=== PATIENT | male | born 1990 | race American Indian/Alaskan Native ===

== ENCOUNTER 2017-01-10 22:25 | Observation (INO) | payer MEDICAID, OTHER ==
--- NOTE | 2017-01-10 22:56 | ED PDOC ---
Arrival/HPI - General Time Seen by Provider: 01/10/17 22:34 Historian: Patient - History of Present Illness Narrative History of Present Illness (Text): 01/10/17 22:56 26 year old male patient presents to the emergency department complaining of chest pain and abdominal pain. Patient was discharged today from [facility] for a psychiatric Evaluation. Patient denies any suicidal ideation, homicidal ideation, fever, chills, shortness of breath, nausea, vomiting, diarrhea, urinary symptoms, back pain, neck pain, headache, dizziness, or any other complaints. PMD: Dr. Jansen Time/Duration: Other Symptom Course: Unchanged Activities at Onset: Light Context: Home Past Medical History - Provider Review Nursing Documentation Reviewed: Yes - Infectious Disease Hx of Infectious Diseases: None - Tetanus Immunization Tetanus Immunization: Unknown - Cardiac Hx Cardiac Disorders: No Hx Hypertension: Yes - Pulmonary Hx Tuberculosis: No - Neurological HX Cerebrovascular Accident: No Hx Seizures: No - HEENT Hx HEENT Disorder: No - Renal Hx Renal Disorder: No - Endocrine/Metabolic Hx Endocrine Disorders: Yes Hx Diabetes Mellitus Type 1: Yes - Hematological/Oncological Hx Cancer: No - Integumentary Hx Dermatological Disorder: No - Musculoskeletal/Rheumatological Hx Fractures: Yes (hx. right wrist) - Gastrointestinal Hx Gastrointestinal Disorders: No - Genitourinary/Gynecological Hx Sexually Transmitted Diseases: No - Psychiatric Hx Anxiety: Yes Hx Bipolar Disorder: Yes Hx Depression: Yes Hx Schizophrenia: Yes Hx Substance Use: Yes (hx of drug overdose) - Anesthesia Hx Anesthesia: No Hx Anesthesia Reactions: No Hx Malignant Hyperthermia: No Family/Social History - Physician Review Nursing Documentation Reviewed: Yes Family/Social History: No Known Family HX Smoking Status: Unknown If Ever Smoked Hx Alcohol Use: No Hx Substance Use: Yes (hx of drug overdose) Substance used: ''Marijuana once a week'' Allergies/Home Meds Allergies/Adverse Reactions: Allergies pollen extracts Allergy (Verified 10/19/16 11:47) REDNESS Review of Systems - Physician Review All systems were reviewed & negative as marked: Yes - Review of Systems Constitutional: absent: Fevers, Other (chills) Respiratory: absent: SOB Cardiovascular: Chest Pain Gastrointestinal: Abdominal Pain. absent: Diarrhea, Nausea, Vomiting Genitourinary Male: Normal. absent: Dysuria, Frequency, Hematuria Musculoskeletal: absent: Back Pain, Neck Pain Neurological: absent: Headache, Dizziness Psychiatric: absent: Suicidal Ideation (/Homicidal Ideation) Physical Exam Vital Signs Reviewed: Yes Vital Signs Temp Pulse Resp BP Pulse Ox 01/11/17 04:00 60 16 127/52 L 99 01/11/17 00:25 86 16 136/78 99 01/10/17 22:25 99.1 F 96 H 16 141/81 99 Temperature: Afebrile Blood Pressure: Normal Pulse: Regular Respiratory Rate: Normal Appearance: Positive for: Well-Appearing, Non-Toxic, Comfortable Pain Distress: None Mental Status: Positive for: Alert and Oriented X 3 - Systems Exam Head: Present: Atraumatic, Normocephalic Pupils: Present: PERRL Extroacular Muscles: Present: EOMI Conjunctiva: Present: Normal Mouth: Present: Moist Mucous Membranes Neck: Present: Normal Range of Motion Respiratory/Chest: Present: Clear to Auscultation, Good Air Exchange. No: Respiratory Distress, Accessory Muscle Use Cardiovascular: Present: Regular Rate and Rhythm, Normal S1, S2. No: Murmurs Abdomen: Present: Normal Bowel Sounds. No: Tenderness, Distention, Peritoneal Signs Back: Present: Normal Inspection Upper Extremity: Present: Normal Inspection. No: Cyanosis, Edema Lower Extremity: Present: Normal Inspection. No: Edema Neurological: Present: GCS=15, CN II-XII Intact, Speech Normal Skin: Present: Warm, Dry, Normal Color. No: Rashes Psychiatric: Present: Alert, Oriented x 3, Normal Insight, Normal Concentration Medical Decision Making ED Course and Treatment: 01/10/17 22:56 Impression: 26 year old male presents for chest pain and abdominal pain. Plan: -- CT abdomen and Pelvis -- EKG -- Labs -- Urinalysis -- Chest Two Views X-ray -- Reassess and disposition Prior Visits: Notes and results from previous visits were reviewed. On 01/10/2017 patient came to [facility] for a psychiatric evaluation. Patient was discharged. Progress Notes: 01/10/17 23:58 EKG shows NSR at [address]/T wave changes with no unchanged results compared to EKG's done today. Interpreted by me. 01/11/17 02:28 CXR Impression: As read by me, no acute processes. EXAM: CT Abdomen and Pelvis Without Intravenous Contrast 01/11/2017 2:51 AM Dictated and Authenticated by: Khanh Page MD IMPRESSION: 1. Mild colitis vs underdistention. Favor underdistention. Clinical correlation is needed. 2. Incidental/non-acute findings are described above. Re-evaluation Time: 06:25 Reassessment Condition: Re-examined, Improved - RAD Interpretation Radiology Orders: 01/10/17 23:06 ABD & PELVIS W/O PO OR IV CONT [CT] Stat 01/10/17 23:07 CHEST TWO VIEWS (PA/LAT) [RAD] Stat - Medication Orders Current Medication Orders: Discontinued Medications Potassium Chloride (K-Dur 20 Meq Er Tab) 20 meq PO ONCE ONE Stop: 01/11/17 06:23 ED OBSERVATION Discharge: Yes Date of observation admission: 01/10/17 Time of observation admission: 23:30 - Observation admission statement Patient is being placed in observation because:: Placed in for abdominal pain. - Goals of Observation Goals of observation are:: Patient goal is improvement in symptoms - Progress Note Progress Note: 01/11/17 03:39 Patient has been examined and will remain under emergency department observation for abdominal pain until ultimate goal of improvement in symptoms. 01/11/17 05:42 Patient resting comfortably, no new complaints. Disposition/Present on Arrival - Present on Arrival Any Indicators Present on Arrival: No History of DVT/PE: No History of Uncontrolled Diabetes: No Urinary Catheter: No History Surgical Site Infection Following: None - Disposition Have Diagnosis and Disposition been Completed?: Yes Diagnosis: Schizoaffective disorder, Abdominal pain Disposition: HOME/ ROUTINE Disposition Time: 06:25 Condition: GOOD
[2017-01-10 23:14] VITALS: RESP 16; O2SAT 99
[2017-01-10 23:58] LABS: BASO # 0.02 K/mm3 (0.0-2.0); BASO % 0.3 % (0.0-3.0); EOS # 0.3 (0.0-0.7); EOS % 3.9 % (1.5-5.0); GRAN # 3.59 (1.4-6.5); GRAN % 53.9 % (50.0-68.0); HEMOGLOBIN 13.8 g/dL (14.0-18.0); LYMPH # 2.4 (1.2-3.4); LYMPH % 35.2 % (22.0-35.0); MEAN CELL VOLUME 79.3 fl (80.0-105.0); MEAN CORPUSCULAR HGB CONC 35.3 g/dl (31.0-37.0); MEAN PLATELET VOLUME 11.2 fl (7.0-11.0); MONO # 0.5 (0.1-0.6); MONO % 6.7 % (1.0-6.0); PLATELET COUNT 193 10^3/uL (120.0-450.0); RBC 4.93 10^6/uL (3.5-6.1); RED CELL DISTRIBUTION WIDTH 13.5 % (11.5-14.5); WHITE BLOOD COUNT 6.7 10^3/ul (4.5-11.0)
[2017-01-11 00:02] LABS: ALB/GLOB RATIO 1.5 (1.1-1.8); ALBUMIN 4.1 g/dL (3.0-4.8); ALT/SGPT 45 U/L (7-56); AMYLASE 41 U/L (35-125); AST/SGOT 46 U/L (15-59); BLOOD UREA NITROGEN 10 mg/dL (7-21); CALCIUM 8.8 mg/dL (8.4-10.5); GFR AFRICAN-AMERICAN > 60; GFR NON-AFRICAN AMERICAN > 60; INR 1.11 (0.93-1.08); LIPASE 92 U/L (23-300); PARTIAL THROMBOPLASTIN TIME 28.9 Seconds (23.7-30.8)
[2017-01-11 00:22] LABS: TROPONIN I < 0.01 ng/mL
[2017-01-11 00:41] LABS: CK MB% 0.4 % (2.5-3.0)
--- NOTE | 2017-01-11 02:51 | CT ---
EXAM: CT Abdomen and Pelvis Without Intravenous Contrast CLINICAL HISTORY: 26 years old, male; Pain; Abdominal pain; Generalized; Additional info: Abd pain TECHNIQUE: Axial computed tomography images of the abdomen and pelvis without intravenous contrast. All CT scans at this facility use one or more dose reduction techniques, viz.: automated exposure control; ma/kV adjustment per patient size (including targeted exams where dose is matched to indication; i.e. head); or iterative reconstruction technique. Coronal and sagittal reformatted images were created and reviewed. COMPARISON: No relevant prior studies available. FINDINGS: Limitations: Lack of intravenous contrast. Lower thorax: Mild atelectasis. ABDOMEN: Liver: Unremarkable. Gallbladder and bile ducts: No calcified stones. No ductal dilation. Pancreas: Unremarkable. No ductal dilation. Spleen: No splenomegaly. Adrenals: No mass. Kidneys and ureters: No renal calculi. No hydronephrosis. Stomach and bowel: Mild mural thickening vs underdistention of ascending colon. No associated inflammatory stranding. No obstruction. Appendix: Normal caliber. No inflammation. PELVIS: Bladder: Unremarkable. No stones. Reproductive: Unremarkable as visualized. ABDOMEN and PELVIS: Intraperitoneal space: No significant fluid collection. No free air. Bones/joints: No acute fracture. Soft tissues: Tiny umbilical hernia containing fat. Small paraumbilical hernia containing fat. Vasculature: Unremarkable. No aneurysm. Lymph nodes: No pathologically enlarged lymph nodes. IMPRESSION: 1. Mild colitis vs underdistention. Favor underdistention. Clinical correlation is needed. 2. Incidental/non-acute findings are described above.
[2017-01-11] MEDS ORDERED: Potassium Chloride 20 mEq ER Tab PO ONE (06:22)
[2017-01-11 06:48] VITALS: BP 118/64; PULSE 69; TEMP 97.6
--- NOTE | 2017-01-11 07:04 | RAD ---
HISTORY: fall COMPARISON: 05/15/2016 TECHNIQUE: Chest PA and lateral FINDINGS: LUNGS: No active pulmonary disease. PLEURA: No significant pleural effusion identified. No pneumothorax apparent. CARDIOVASCULAR: Normal. OSSEOUS STRUCTURES: No significant abnormalities. VISUALIZED UPPER ABDOMEN: Normal. OTHER FINDINGS: None. IMPRESSION: No active disease. No interval pathology noted
--- NOTE | 2017-01-11 09:52 | CARD ---
APPROVED REPORT EKG Measurement Heart [id number] <Conclusion> Normal sinus rhythm Non Specific ST_T Changes. High Voltage can be normal for Young Age.
== END 2017-01-11 06:30 | disposition home or self-care (01) ==
LOC: ED 22:25 → EROBSV 23:30
PROVIDERS: ADMIT Emergency Medicine; ATTEND Emergency Medicine
DX: F25.9 Schizoaffective disorder, unspecified (principal); R10.9 Unspecified abdominal pain; I10 Essential (primary) hypertension; E11.9 Type 2 diabetes mellitus without complications; F31.9 Bipolar disorder, unspecified
CPT/HCPCS: 71020; 74176; 80053; 82150; 82550; 82553; 83615; 83690; 84484; 85025; 85610; 85730; 93005; 99285; G0378

== ENCOUNTER 2017-04-06 21:49 | Inpatient (IN) | payer SELFPAY ==
[2017-04-06 21:49] VITALS: BMI 34.8
--- NOTE | 2017-04-06 22:25 | ED PDOC ---
Arrival/HPI - General Historian: Patient - History of Present Illness Time/Duration: Other (see hpi) Context: Home <Laura Dunlap - Last Filed: 04/07/17 02:06> <Joana Davis - Last Filed: 04/07/17 06:21> - General Chief Complaint: Syncope Time Seen by Provider: 04/06/17 22:15 - History of Present Illness Narrative History of Present Illness (Text): 04/06/17 22:25 This 27 yo male with pmh Anxiety, Asthma, Bipolar Disorder, Depression, HTN, Hypercholesterolemia, Migraine, Schizophrenia, Sleep Apnea, presents to this ED c/o feeling generalized weakness x 2 days. Patient noted feeling dizzy and fainted twice today. Patient stated he always has a constant auditory and visual hallucination. Patient stated he is complaint to his medication. During medical interview, patient appeared irritable, not wanted to answer some of my questions, getting angry when I asked question regarding his psych history. Patient has been eating [facility] meal during medical interview. (Laura Dunlap) Past Medical History - Provider Review Nursing Documentation Reviewed: Yes - Infectious Disease Hx of Infectious Diseases: None - Tetanus Immunization Tetanus Immunization: Unknown - Cardiac Hx Cardiac Disorders: No (Pt reported but not offical diagnosis or treatment for illness) Hx Hypertension: Yes (denies medication) - Pulmonary Hx Asthma: Yes Hx Sleep Apnea: Yes - Neurological Hx Migraine: Yes - HEENT Hx HEENT Disorder: No - Renal Hx Renal Disorder: No - Endocrine/Metabolic Hx Endocrine Disorders: Yes - Hematological/Oncological Hx Cancer: No (Patient denied) - Integumentary Hx Dermatological Disorder: No - Musculoskeletal/Rheumatological Hx Fractures: Yes (hx. right wrist) - Gastrointestinal Hx Gastrointestinal Disorders: No - Genitourinary/Gynecological Hx Sexually Transmitted Diseases: No (Patient denied) - Psychiatric Hx Anxiety: Yes Hx Bipolar Disorder: Yes Hx Depression: Yes Hx Schizophrenia: Yes Hx Substance Use: Yes - Anesthesia Hx Anesthesia: No Hx Anesthesia Reactions: No Hx Malignant Hyperthermia: No <Laura Dunlap - Last Filed: 04/07/17 02:06> Family/Social History - Physician Review Nursing Documentation Reviewed: Yes Family/Social History: Other (noncontributory) Smoking Status: Light Smoker < 10 Cigarettes Daily Hx Alcohol Use: No Hx Substance Use: Yes Substance used: ''Marijuana once a week'' <Laura Dunlap P - Last Filed: 04/07/17 02:06> Allergies/Home Meds <Laura Dunlap - Last Filed: 04/07/17 02:06> <Joana Davis - Last Filed: 04/07/17 06:21> Allergies/Adverse Reactions: Allergies pollen extracts Allergy (Verified 04/06/17 22:52) REDNESS Home Medications: Home Meds Medication Instructions Recorded Confirmed No Known Home Med 04/06/17 04/06/17 Review of Systems - Review of Systems Constitutional: Fatigue. absent: Weight Change, Fevers, Night Sweats Eyes: Normal ENT: Normal Respiratory: Normal. absent: SOB, Cough Cardiovascular: Syncope. absent: Chest Pain, Palpitations Gastrointestinal: Normal. absent: Abdominal Pain, Nausea, Vomiting Genitourinary Male: Normal. absent: Dysuria, Frequency, Hematuria Musculoskeletal: Normal Skin: Normal. absent: Rash, Pruritis, Skin Lesions, Laceration Neurological: Normal. absent: Headache, Dizziness, Focal Weakness, Gait Changes , Speech Changes, Facial Droop, Disequilibrium, Seizure Endocrine: Normal Hemo/Lymphatic: Normal Psychiatric: Other (see hpi) <Laura Dunlap P - Last Filed: 04/07/17 02:06> Physical Exam Temperature: Afebrile Blood Pressure: Normal Pulse: Regular Respiratory Rate: Normal Appearance: Positive for: Well-Appearing, Non-Toxic, Comfortable Pain Distress: None Mental Status: Positive for: Alert and Oriented X 3 - Systems Exam Head: Present: Atraumatic, Normocephalic Pupils: Present: PERRL Extroacular Muscles: Present: EOMI Conjunctiva: Present: Normal Mouth: Present: Moist Mucous Membranes Pharnyx: Present: Normal. No: ERYTHEMA, EXUDATE, TONSILS ENLARGED Neck: Present: Normal Range of Motion. No: Meningeal Signs Respiratory/Chest: Present: Clear to Auscultation, Good Air Exchange. No: Respiratory Distress, Accessory Muscle Use, Wheezes, Retracting, Rhonchi Cardiovascular: Present: Regular Rate and Rhythm, Normal S1, S2. No: Murmurs Abdomen: Present: Normal Bowel Sounds. No: Tenderness, Distention, Peritoneal Signs Back: Present: Normal Inspection. No: CVA Tenderness Upper Extremity: Present: Normal Inspection, Normal ROM, NORMAL PULSES, Neurovascularly Intact, Capillary Refill < 2s. No: Cyanosis, Edema Lower Extremity: Present: Normal Inspection, NORMAL PULSES, Normal ROM, Neurovascularly Intact, Capillary Refill < 2 s. No: Edema, CALF TENDERNESS Neurological: Present: GCS=15, CN II-XII Intact, Speech Normal, Motor Func Grossly Intact, Normal Sensory Function, Normal Cerebellar Funct, Gait Normal, Memory Normal Skin: Present: Warm, Dry, Normal Color. No: Rashes Psychiatric: Present: Alert, Oriented x 3, Anxious, Hallucinations, Other (+ irritable). No: Suicidal Ideation, Homicidal Ideation <Laura Dunlap P - Last Filed: 04/07/17 02:06> Vital Signs Temp Pulse Resp BP Pulse Ox 04/07/17 03:15 68 17 100/60 100 04/06/17 21:59 98.5 F 78 19 135/65 99 Medical Decision Making <Laura Dunlap - Last Filed: 04/07/17 02:06> <Joana Davis - Last Filed: 04/07/17 06:21> ED Course and Treatment: 04/07/17 01:56 Patient came to this ED c/o feeling dizzy, and he stated he fainted twice today. Patient admits visual and auditory hallucination. Patient told me he is complaint to medication, although he told triage nurse he is not taking his psych meds. Patient appears irritable, and refusing to give all psych information. Patient remained stable during the course of ED visit. no syncope, dizziness during the course of ED visit. 04/07/17 02:09 I sign out this case to Dr. Davis. Pending UA, UDS, CXR. Pending PES evaluation since he presents with psychotic behavior. (Laura Dunlap) 04/07/17 06:15 CXR already done on 03/27 was unremarkable. No indication to repeat. The patient's urine is pending but was otherwise medically cleared for PES evaluation and admission. Patient seen by PES - will be admitted to psych for schizoaffective/bipolar. (Joana Davis) - Lab Interpretations Lab Results: 04/06/17 23:20 04/06/17 23:20 Lab Results 04/06/17 23:20: Alcohol, Quantitative < 10 04/06/17 23:20: Salicylates < 1 L, Acetaminophen < 10.0 L 04/06/17 23:20: Sodium 140, Potassium 4.3, Chloride 108, Carbon Dioxide 24, Anion Gap 12, BUN 14, Creatinine 0.8, Est GFR ( Amer) > 60, Est GFR (Non- Af Amer) > 60, Random Glucose 100, Calcium 8.8, Total Bilirubin 0.7, AST 53, ALT 55, Alkaline Phosphatase 50, Total Protein 6.8, Albumin 4.0, Globulin 2.8, Albumin/Globulin Ratio 1.4 04/06/17 23:20: WBC 6.7, RBC 4.56, Hgb 12.6 L, Hct 37.0 L, MCV 81.1, MCH 27.6, MCHC 34.1, RDW 14.4, Plt Count 177, MPV 12.3 H, Gran % 44.1 L, Lymph % (Auto) 46.6 H, Robertson % (Auto) 6.7 H, Eos % (Auto) 2.2, Baso % (Auto) 0.4, Gran # 2.94, Lymph # 3.1, Robertson # 0.5, Eos # 0.2, Baso # 0.03 - RAD Interpretation Radiology Orders: 04/06/17 22:38 CHEST PORTABLE [RAD] Stat Disposition/Present on Arrival - Present on Arrival History of DVT/PE: No History of Uncontrolled Diabetes: No Urinary Catheter: No History of Decub. Ulcer: No History Surgical Site Infection Following: None <Laura Dunlap - Last Filed: 04/07/17 02:06> - Present on Arrival Any Indicators Present on Arrival: No - Disposition Have Diagnosis and Disposition been Completed?: Yes Disposition Time: 06:00 Patient Plan: Admission <Joana Davis - Last Filed: 04/07/17 06:21> - Disposition Diagnosis: Schizoaffective disorder, Paranoid delusion Disposition: HOSPITALIZED Condition: FAIR Referrals: PCP,NO [Primary Care Provider] - Follow up with primary Forms: [employer] (Portuguese)
[2017-04-06 23:48] LABS: BASO # 0.03 K/mm3 (0.0-2.0); BASO % 0.4 % (0.0-3.0); EOS # 0.2 (0.0-0.7); EOS % 2.2 % (1.5-5.0); GRAN # 2.94 (1.4-6.5); GRAN % 44.1 % (50.0-68.0); LYMPH # 3.1 (1.2-3.4); LYMPH % 46.6 % (22.0-35.0); MEAN CELL VOLUME 81.1 fl (80.0-105.0); MEAN CORPUSCULAR HEMOGLOBIN 27.6 pg (25.0-35.0); MEAN CORPUSCULAR HGB CONC 34.1 g/dl (31.0-37.0); MEAN PLATELET VOLUME 12.3 fl (7.0-11.0); MONO # 0.5 (0.1-0.6); MONO % 6.7 % (1.0-6.0); RED CELL DISTRIBUTION WIDTH 14.4 % (11.5-14.5); WHITE BLOOD COUNT 6.7 10^3/ul (4.5-11.0)
[2017-04-06 23:58] LABS: ALB/GLOB RATIO 1.4 (1.1-1.8); ALKALINE PHOSPHATASE 50 U/L (38-126); ALT/SGPT 55 U/L (7-56); AST/SGOT 53 U/L (17-59); BILIRUBIN,TOTAL 0.7 mg/dL (0.2-1.3); BLOOD UREA NITROGEN 14 mg/dL (7-21); CALCIUM 8.8 mg/dL (8.4-10.5); CARBON DIOXIDE 24 mmol/L (21-33); CHLORIDE 108 mmol/L (95-110); GFR AFRICAN-AMERICAN > 60; GLUCOSE,RANDOM 100 mg/dL (70-110); POTASSIUM 4.3 mmol/L (3.6-5.0); SODIUM 140 mmol/L (132-148); TOTAL PROTEIN 6.8 g/dL (5.8-8.3)
[2017-04-07 07:24] LABS: URINE BILIRUBIN SMALL (NEGATIVE); URINE BLOOD NEGATIVE (NEGATIVE); URINE GLUCOSE (UA) NEGATIVE (NEGATIVE); URINE KETONE NEGATIVE (NEGATIVE); URINE LEUKOCYTE ESTERASE NEGATIVE Leu/uL (NEGATIVE); URINE PROTEIN TRACE mg/dL (<30 mg/dL)
[2017-04-07 07:32] LABS: URINE COLOR YELLOW (YELLOW)
[2017-04-07 07:33] LABS: URINE APPEARANCE CLEAR (CLEAR)
[2017-04-07 07:50] LABS: URINE BACTERIA MOD (NEG); URINE RBC NEGATIVE /hpf (0-2); URINE WBC NEGATIVE /hpf (0-6)
--- NOTE | 2017-04-07 12:39 | PCM.BM ---
<AbramAneesh - Last Filed: 04/07/17 12:40> Treatment Plan Problems - Problems identified on initial assessmt agitated/aggressive behavior Date Initiated: 04/07/17 Time Initiated: 12:37 Assessment reference: HP, NA high risk for violence Date Initiated: 04/07/17 Time Initiated: 12:37 Assessment reference: HP, NA medication nonadherence Date Initiated: 04/07/17 Time Initiated: 12:38 Assessment reference: HP, NA ineffective impulse control Date Initiated: 04/07/17 Time Initiated: 12:38 Assessment reference: HP, NA Treatment assets and liabiliti Patient Assests: cooperative, ADL independent, physically healthy, negotiates basic needs, cognitively intact Patient Liabilities: live alone, financial problems, poor support system, relationship conflicts, substance abuse, other (psychotic symptoms) - Milieu Protocol Maintain good personal hygiene: daily Encourage regular showers, daily Remind patient to perform daily oral care, daily Assist patient to perform ADL's Maintain personal safety: daily Educate patient to report safety concerns to staff, daily Monitor environment for contraband/sharps Medication safety: Monitor for expected outcome, potential side effects: daily, Assess barriers to learning: daily, Assess readiness for medication education: daily Discharge/Continuing Care - Education Needs Education Needs: Patient Medication, Patient Diagnosis/Disease Process, Patient Coping Skills, Patient Anger Management skills, Patient Placement options, Patient Community resources, Patient Activities of Daily Living, Patient Health Practices/Safety, Patient Personal Hygiene/Grooming, Patient Aftercare Safety Plan, Patient Other - Discharge Discharge Criteria: Free of Suicidal thoughts, Free of Homicidal thoughts, Free of paranoid thoughts, Free of agitation, Normal sleep pattern, Ability to care for self <Marisel Contreras - Last Filed: 04/07/17 16:35> Family Contact Family involvement: Famliy/SO not involved <Marge Tinajero - Last Filed: 04/07/17 16:49> Treatment Plan Problems - Problems identified on initial assessmt agitated/aggressive behavior Date Initiated: 04/07/17 Time Initiated: 12:37 Assessment reference: HP, NA high risk for violence Date Initiated: 04/07/17 Time Initiated: 12:37 Assessment reference: HP, NA medication nonadherence Date Initiated: 04/07/17 Time Initiated: 12:38 Assessment reference: HP, NA ineffective impulse control Date Initiated: 04/07/17 Time Initiated: 12:38 Assessment reference: HP, NA ineffective imulse control Date Initiated: 04/07/17 Time Initiated: 12:38 Assessment reference: JURGEN NA
--- NOTE | 2017-04-07 13:01 | CARD ---
APPROVED REPORT EKG Measurement Heart [id number] NM [id number] [id number] <Conclusion> Normal sinus rhythm Normal ECG
[2017-04-07] MEDS: Divalproex 500 mg DR(BID formulation) PO SCH ×2 (17:27→18:27)
[2017-04-07 18:51] LABS: URINE BILIRUBIN SMALL (NEGATIVE); URINE BLOOD NEGATIVE (NEGATIVE); URINE GLUCOSE (UA) NEGATIVE (NEGATIVE); URINE KETONE NEGATIVE (NEGATIVE); URINE LEUKOCYTE ESTERASE NEGATIVE Leu/uL (NEGATIVE); URINE PROTEIN NEGATIVE mg/dL (<30 mg/dL)
[2017-04-07 18:53] LABS: URINE APPEARANCE CLEAR (CLEAR); URINE COLOR DARK YELLOW (YELLOW)
[2017-04-08 07:01] VITALS: O2SAT 100
[2017-04-08 08:20] LABS: CHOLESTEROL 155 mg/dL (130-200); GLUCOSE,FASTING 84 mg/dL (65-110)
[2017-04-08 08:39] LABS: FREE T4 1.01 ng/dL (0.78-2.19)
[2017-04-08] MEDS: Divalproex 500 mg DR(BID formulation) PO SCH ×3 (08:41→17:38)
[2017-04-08] MEDS ORDERED: Albuterol HFA 90 mcg/actuation (8 g) IH PRN (08:47)
[2017-04-08 08:53] LABS: THYROID STIMULATING HORMONE 2.64 mIU/mL (0.46-4.68)
[2017-04-08] MEDS ORDERED: Albuterol 0.083% Inhal Sol (2.5 mg/3 mL) UD IH PRN (08:54)
[2017-04-08 09:39] LABS: TROPONIN I < 0.01 ng/mL
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
--- NOTE | 2017-04-08 15:14 | CT ---
PROCEDURE: CT HEAD WITHOUT CONTRAST. HISTORY: near-syncope COMPARISON: None available. TECHNIQUE: Axial computed tomography images were obtained through the head/brain without intravenous contrast. Radiation dose: Total exam DLP = 825.58 mGy-cm. This CT exam was performed using one or more of the following dose reduction techniques: Automated exposure control, adjustment of the mA and/or kV according to patient size, and/or use of iterative reconstruction technique. FINDINGS: HEMORRHAGE: No intracranial hemorrhage. BRAIN: No mass effect or edema. No atrophy or chronic microvascular ischemic changes. VENTRICLES: Unremarkable. No hydrocephalus. CALVARIUM: Unremarkable. PARANASAL SINUSES: Unremarkable as visualized. No significant inflammatory changes. MASTOID AIR CELLS: Unremarkable as visualized. No inflammatory changes. OTHER FINDINGS: None. IMPRESSION: No evidence of acute intracranial pathology.
[2017-04-08 16:04] LABS: TROPONIN I < 0.01 ng/mL
--- NOTE | 2017-04-08 16:55 | PCM.PYCHPN ---
Psychiatric Progress Note - Psychiatric Progress Note Patient seen today, length of contact: 25 min Patient Chief Complaint: irritable Problems Identified/Issues Discussed: I recent notes and met with patient at bedside. Patient has been difficult on the unit. Noted to be paranoid and hostile towards staff. Patient spit up his medications yesterday. Security needed to be called to give him IM haldol and Ativan after he refused to take it PO. Patient is brittle but cooperative with my questioning this morning at bedside. Patient is fairly groomed and oriented to month year and location. He reports that he isn't sleeping and has been irritable about the noise on the unit. Regarding hallucinations he is a little bit vague indicate that he "sees blurs" . He denies any auditory hallucinations and he doesn't appear to be responding to internal stimuli. He denies any new discomfort or pain however does report tingling in his extremities which he attributes to his medications. There are no behavioral issues overnight however patient insight and judgment are poor and he remains unpredictable Diagnostic Results: Schizoaffective Disorder Medication Change: No Medical Record Reviewed: Yes Mental Status Examination - Cognitive Function Orientation: Person, Place Attention: WNL - Mood Mood: Other (irritable) - Affect Affect: Other (labile) - Speech Speech: Appropriate - Formal Thought Process Formal Thought Process: Hallucinations (blurs), Paranoia - Suicidal Ideation Suicidal Ideation: No - Homicidal Ideation Homicidal Ideation: No Goal/Treatment Plan - Goal/Treatment Plan Progress Toward Problem(s) and Goals/Treatment Plan: * c/w current tx and plan * Vitals reviewed and noted below: Selected Entries 04/06/17 04/07/17 04/07/17 21:59 03:15 06:52 Temperature 98.5 F Pulse Rate 78 68 63 Respiratory 19 17 Rate Blood Pressure 135/65 100/60 130/76 * Weekend labs noted below: 04/08/17 04/08/17 04/08/17 06:50 06:50 06:50 Fasting Glucose 84 Lactate Dehydrogenase Total Creatine Kinase CK-MB (CK-2) Troponin I Triglycerides 88 Cholesterol 155 LDL Cholesterol Direct 85 HDL Cholesterol 47 Free T4 1.01 TSH 3rd Generation 2.64 Valproic Acid RPR Nonreactive 04/08/17 04/08/17 04/08/17 06:50 08:50 15:15 Fasting Glucose Lactate Dehydrogenase 484 454 Total Creatine Kinase 785 H 691 H CK-MB (CK-2) 3.0 3.2 Troponin I < 0.01 < 0.01 Triglycerides Cholesterol LDL Cholesterol Direct HDL Cholesterol Free T4 TSH 3rd Generation Valproic Acid < 10 L RPR
[2017-04-08] MEDS: Albuterol HFA 90 mcg/actuation (8 g) IH PRN ×2 (17:01→21:36)
[2017-04-08 21:18] LABS: TROPONIN I < 0.01 ng/mL
[2017-04-09] MEDS: Albuterol HFA 90 mcg/actuation (8 g) IH PRN (08:45)
[2017-04-09] MEDS: Divalproex 500 mg DR(BID formulation) PO SCH ×2 (08:46→12:34)
--- NOTE | 2017-04-09 09:58 | PCM.PYCHPN ---
Psychiatric Progress Note - Psychiatric Progress Note Patient seen today, length of contact: 25 min Patient Chief Complaint: "the same" Problems Identified/Issues Discussed: I reviewed recent notes and met with patient in the [facility]. He is groomed, alert , oriented x3. Notes indicate that he was in better control on Monday ( yesterday). On Monday patient was paranoid and hostile towards staff. He spit up his medications. Security needed to be called to give him IM haldol and Ativan after he refused to take it PO. Patient is calm and cooperative with my questioning this morning. He reports that he feels the same. Regarding hallucinations he is still a little bit vague indicate that he "sees blurs". He denies any auditory hallucinations and he doesn't appear to be responding to internal stimuli. He denies any new discomfort or pain however does still report numbness and tingling in his extremities which he attributes to his medications. There were no behavioral issues overnight. Diagnostic Results: Schizoaffective Disorder Medication Change: No Medical Record Reviewed: Yes Mental Status Examination - Cognitive Function Orientation: Person, Place Attention: WNL - Mood Mood: Other (irritable, "the same") - Affect Affect: Other (labile) - Speech Speech: Appropriate - Formal Thought Process Formal Thought Process: Hallucinations (blurs), Paranoia - Suicidal Ideation Suicidal Ideation: No - Homicidal Ideation Homicidal Ideation: No Goal/Treatment Plan - Goal/Treatment Plan Progress Toward Problem(s) and Goals/Treatment Plan: * c/w current tx and plan * Appreciate f/u by Dr. Coto on 04/08/17~CT head was ordered as well as serial cardiac enzymes. To check orthostatics and monitor fingersticks as he reported history of hypoglycemic episodes. * Vitals reviewed and noted below: Selected Entries 04/08/17 04/08/17 07:00 16:00 Temperature 98.5 F Pulse Rate 62 56 L Respiratory 16 Rate Blood Pressure 99/63 L 120/71 O2 Sat by Pulse 100 Oximetry * Weekend labs noted below: Laboratory Results - last 72 hr 04/06/17 04/06/17 04/06/17 23:20 23:20 23:20 WBC 6.7 RBC 4.56 Hgb 12.6 L Hct 37.0 L MCV 81.1 MCH 27.6 MCHC 34.1 RDW 14.4 Plt Count 177 MPV 12.3 H Gran % 44.1 L Lymph % (Auto) 46.6 H [place] % (Auto) 6.7 H Eos % (Auto) 2.2 Baso % (Auto) 0.4 Gran # 2.94 Lymph # 3.1 [place] # 0.5 Eos # 0.2 Baso # 0.03 Sodium 140 Potassium 4.3 Chloride 108 Carbon Dioxide 24 Anion Gap 12 BUN 14 Creatinine 0.8 Est GFR ( Amer) > 60 Est GFR (Non-Af Amer) > 60 POC Glucose (mg/dL) Random Glucose 100 Fasting Glucose Calcium 8.8 Total Bilirubin 0.7 AST 53 ALT 55 Alkaline Phosphatase 50 Lactate Dehydrogenase Total Creatine Kinase CK-MB (CK-2) CK-MB (CK-2) % Troponin I Total Protein 6.8 Albumin 4.0 Globulin 2.8 Albumin/Globulin Ratio 1.4 Triglycerides Cholesterol LDL Cholesterol Direct HDL Cholesterol Free T4 TSH 3rd Generation Urine Color Urine Appearance Urine pH Ur Specific [place] Urine Protein Urine Glucose (UA) Urine Ketones Urine Blood Urine Nitrate Urine Bilirubin Urine Urobilinogen Ur Leukocyte Esterase Urine RBC Urine WBC Ur Epithelial Cells Urine Bacteria Salicylates < 1 L Urine Opiates Screen Urine Methadone Screen Acetaminophen < 10.0 L Ur Barbiturates Screen Valproic Acid Ur Phencyclidine Scrn Ur Amphetamines Screen U Benzodiazepines Scrn U Oth Cocaine Metabols U Cannabinoids Screen Alcohol, Quantitative RPR 04/06/17 04/07/17 04/07/17 23:20 06:40 06:40 WBC RBC Hgb Hct MCV MCH MCHC RDW Plt Count MPV Gran % Lymph % (Auto) [place] % (Auto) Eos % (Auto) Baso % (Auto) Gran # Lymph # [place] # Eos # Baso # Sodium Potassium Chloride Carbon Dioxide Anion Gap BUN Creatinine Est GFR ( Amer) Est GFR (Non-Af Amer) POC Glucose (mg/dL) Random Glucose Fasting Glucose Calcium Total Bilirubin AST ALT Alkaline Phosphatase Lactate Dehydrogenase Total Creatine Kinase CK-MB (CK-2) CK-MB (CK-2) % Troponin I Total Protein Albumin Globulin Albumin/Globulin Ratio Triglycerides Cholesterol LDL Cholesterol Direct HDL Cholesterol Free T4 TSH 3rd Generation Urine Color Yellow Urine Appearance Clear Urine pH 6.0 Ur Specific [place] >= 1.030 Urine Protein Trace H Urine Glucose (UA) Negative Urine Ketones Negative Urine Blood Negative Urine Nitrate Negative Urine Bilirubin Small H Urine Urobilinogen 2.0 H Ur Leukocyte Esterase Negative Urine RBC Negative Urine WBC Negative Ur Epithelial Cells None Urine Bacteria Mod Salicylates Urine Opiates Screen Negative Urine Methadone Screen Negative Acetaminophen Ur Barbiturates Screen Negative Valproic Acid Ur Phencyclidine Scrn Negative Ur Amphetamines Screen Negative U Benzodiazepines Scrn Negative U Oth Cocaine Metabols Negative U Cannabinoids Screen Positive H Alcohol, Quantitative < 10 RPR 04/07/17 04/07/17 04/08/17 18:40 18:40 06:50 WBC RBC Hgb Hct MCV MCH MCHC RDW Plt Count MPV Gran % Lymph % (Auto) [place] % (Auto) Eos % (Auto) Baso % (Auto) Gran # Lymph # [place] # Eos # Baso # Sodium Potassium Chloride Carbon Dioxide Anion Gap BUN Creatinine Est GFR ( Amer) Est GFR (Non-Af Amer) POC Glucose (mg/dL) Random Glucose Fasting Glucose 84 Calcium Total Bilirubin AST ALT Alkaline Phosphatase Lactate Dehydrogenase Total Creatine Kinase CK-MB (CK-2) CK-MB (CK-2) % Troponin I Total Protein Albumin Globulin Albumin/Globulin Ratio Triglycerides 88 Cholesterol 155 LDL Cholesterol Direct 85 HDL Cholesterol 47 Free T4 TSH 3rd Generation Urine Color Dark yellow Urine Appearance Clear Urine pH 7.0 Ur Specific [place] 1.020 Urine Protein Negative Urine Glucose (UA) Negative Urine Ketones Negative Urine Blood Negative Urine Nitrate Negative Urine Bilirubin Small H Urine Urobilinogen 4.0 H Ur Leukocyte Esterase Negative Urine RBC Urine WBC Ur Epithelial Cells Urine Bacteria Salicylates Urine Opiates Screen Negative Urine Methadone Screen Negative Acetaminophen Ur Barbiturates Screen Negative Valproic Acid Ur Phencyclidine Scrn Negative Ur Amphetamines Screen Negative U Benzodiazepines Scrn Negative U Oth Cocaine Metabols Negative U Cannabinoids Screen Positive H Alcohol, Quantitative RPR 04/08/17 04/08/17 04/08/17 06:50 06:50 06:50 WBC RBC Hgb Hct MCV MCH MCHC RDW Plt Count MPV Gran % Lymph % (Auto) [place] % (Auto) Eos % (Auto) Baso % (Auto) Gran # Lymph # [place] # Eos # Baso # Sodium Potassium Chloride Carbon Dioxide Anion Gap BUN Creatinine Est GFR ( Amer) Est GFR (Non-Af Amer) POC Glucose (mg/dL) Random Glucose Fasting Glucose Calcium Total Bilirubin AST ALT Alkaline Phosphatase Lactate Dehydrogenase Total Creatine Kinase CK-MB (CK-2) CK-MB (CK-2) % Troponin I Total Protein Albumin Globulin Albumin/Globulin Ratio Triglycerides Cholesterol LDL Cholesterol Direct HDL Cholesterol Free T4 1.01 TSH 3rd Generation 2.64 Urine Color Urine Appearance Urine pH Ur Specific [place] Urine Protein Urine Glucose (UA) Urine Ketones Urine Blood Urine Nitrate Urine Bilirubin Urine Urobilinogen Ur Leukocyte Esterase Urine RBC Urine WBC Ur Epithelial Cells Urine Bacteria Salicylates Urine Opiates Screen Urine Methadone Screen Acetaminophen Ur Barbiturates Screen Valproic Acid < 10 L Ur Phencyclidine Scrn Ur Amphetamines Screen U Benzodiazepines Scrn U Oth Cocaine Metabols U Cannabinoids Screen Alcohol, Quantitative RPR Nonreactive 04/08/17 04/08/17 04/08/17 08:50 15:15 17:07 WBC RBC Hgb Hct MCV MCH MCHC RDW Plt Count MPV Gran % Lymph % (Auto) [place] % (Auto) Eos % (Auto) Baso % (Auto) Gran # Lymph # [place] # Eos # Baso # Sodium Potassium Chloride Carbon Dioxide Anion Gap BUN Creatinine Est GFR ( Amer) Est GFR (Non-Af Amer) POC Glucose (mg/dL) 76 Random Glucose Fasting Glucose Calcium Total Bilirubin AST ALT Alkaline Phosphatase Lactate Dehydrogenase 484 454 Total Creatine Kinase 785 H 691 H CK-MB (CK-2) 3.0 3.2 CK-MB (CK-2) % Cancelled Cancelled Troponin I < 0.01 < 0.01 Total Protein Albumin Globulin Albumin/Globulin Ratio Triglycerides Cholesterol LDL Cholesterol Direct HDL Cholesterol Free T4 TSH 3rd Generation Urine Color Urine Appearance Urine pH Ur Specific [place] Urine Protein Urine Glucose (UA) Urine Ketones Urine Blood Urine Nitrate Urine Bilirubin Urine Urobilinogen Ur Leukocyte Esterase Urine RBC Urine WBC Ur Epithelial Cells Urine Bacteria Salicylates Urine Opiates Screen Urine Methadone Screen Acetaminophen Ur Barbiturates Screen Valproic Acid Ur Phencyclidine Scrn Ur Amphetamines Screen U Benzodiazepines Scrn U Oth Cocaine Metabols U Cannabinoids Screen Alcohol, Quantitative RPR 04/08/17 04/08/17 20:50 21:53 WBC RBC Hgb Hct MCV MCH MCHC RDW Plt Count MPV Gran % Lymph % (Auto) [place] % (Auto) Eos % (Auto) Baso % (Auto) Gran # Lymph # [place] # Eos # Baso # Sodium Potassium Chloride Carbon Dioxide Anion Gap BUN Creatinine Est GFR ( Amer) Est GFR (Non-Af Amer) POC Glucose (mg/dL) 88 Random Glucose Fasting Glucose Calcium Total Bilirubin AST ALT Alkaline Phosphatase Lactate Dehydrogenase 466 Total Creatine Kinase 656 H CK-MB (CK-2) 3.5 CK-MB (CK-2) % Cancelled Troponin I < 0.01 Total Protein Albumin Globulin Albumin/Globulin Ratio Triglycerides Cholesterol LDL Cholesterol Direct HDL Cholesterol Free T4 TSH 3rd Generation Urine Color Urine Appearance Urine pH Ur Specific [place] Urine Protein Urine Glucose (UA) Urine Ketones Urine Blood Urine Nitrate Urine Bilirubin Urine Urobilinogen Ur Leukocyte Esterase Urine RBC Urine WBC Ur Epithelial Cells Urine Bacteria Salicylates Urine Opiates Screen Urine Methadone Screen Acetaminophen Ur Barbiturates Screen Valproic Acid Ur Phencyclidine Scrn Ur Amphetamines Screen U Benzodiazepines Scrn U Oth Cocaine Metabols U Cannabinoids Screen Alcohol, Quantitative RPR
--- NOTE | 2017-04-09 13:05 | CP.PCM.PCO ---
Physician Communication Note - Physician Communication Note Physician Communication Note: Please see attached section Summary - Summary of Event Summary of Event: Pt was seen and examined. Pt c/o cough, congestion, and foot discoloration. Pt states that cough and congestion was present since 2 weeks prior to admission. Foot discoloration was concerning to patient, but no pain or swelling. Pt was examined. Pharynx was non-erythematous without exudates, no sinus pain or pressure, no cervical lymphadenopathy, lungs were CTAB, no abdominal pain, b/l non-tender feet and ankles, calluses present on b/l 1st MTP. Pt will be given tessalon perles as needed for cough. No intervention is needed at this time for feet.
[2017-04-09] MEDS: Valproic Acid 250 mg/5 ml UD Cup PO SCH (17:12)
[2017-04-10 07:16] VITALS: BP 103/67; PULSE 58; RESP 20; TEMP 98.2
[2017-04-10] MEDS ORDERED: OLANZapine 5 mg Disintegrating Tab PO SCH (08:00)
[2017-04-10] MEDS: Valproic Acid 250 mg/5 ml UD Cup PO SCH (08:35)
[2017-04-10] MEDS: Albuterol HFA 90 mcg/actuation (8 g) IH PRN (08:39)
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
== END 2017-04-10 17:08 | disposition home or self-care (01) | DRG 885 ==
LOC: ED 21:49 → ERH 04-07 06:06 → PSYC 04-07 07:29
PROVIDERS: ADMIT Psychiatry & Neurology Addiction Medicine; ATTEND Psychiatry & Neurology Addiction Medicine
DX: F25.9 Schizoaffective disorder, unspecified (principal); F31.9 Bipolar disorder, unspecified; F41.9 Anxiety disorder, unspecified; E11.9 Type 2 diabetes mellitus without complications; R55 Syncope and collapse; J45.909 Unspecified asthma, uncomplicated; E78.5 Hyperlipidemia, unspecified; Z76.5 Malingerer [conscious simulation]